=== PATIENT | female | born 1955 | race Caucasian/White ===

== ENCOUNTER 2019-02-23 11:31 | Observation (INO) | payer MEDICARE, SELFPAY ==
[2019-02-22 12:45] VITALS: BMI 38.0
[2019-02-23] VITALS (10 sets, daily range): BP systolic 106–163; BP diastolic 57–95; PULSE 53–79; RESP 16–18; TEMP 36.2–36.7; O2SAT 92–97; BMI 39.2
--- NOTE | 2019-02-23 | GALL_PTH ---
PATIENT: ELISABET ROMANO LOC: [facility]3 U#:[id number] AGE/SX: 64/F ROOM: MS313 RE02/23/[address]: Dr. Jules Campbell MD : 1955 BED: 1 DIS: 02/23/2019 SPEC #: [id number] RECD: 02/23/19 12:16 STATUS: ADÁN JOHN #: [id number] GUZMAN: 02/23/19 00:[address]: Jules Campbell DEPT: SURGICAL PATHOLOGY RECD BY: Alessio Briscoe ENTERED: 02/23/19 12:19 SP TYPE: MOJGAN SPAULDING DR: Dr. Emil Vásquez MD Tissues: A - Gallbladder, NOS B - HERNIA Procedures: Surgery Specimen Level II Surgery Specimen Level III HEADER OPERATION: Laparoscopic cholecystectomy with IOC, umbilical hernia PRE-OP DIAGNOSIS: Cholecystitis with cholelithiasis; umbilical hernia without obstruction or gangrene TISSUE SUBMITTED: A - Gallbladder, B - Hernia sac MICROSCOPIC DIAGNOSIS A. Gallbladder, cholecystectomy: Cholesterolosis, chronic cholecystitis and cholelithiasis. B. Hernia sac, herniorrhaphy: Fragment of benign fibrofatty tissue consistent with hernia sac. AM:ap 02/24/19 MICROSCOPIC DESCRIPTION Slides are reviewed. GROSS DESCRIPTION A - Received is one container labeled with the patient's name and designated gallbladder. The specimen consists of a gallbladder measuring 8 cm in length and 4 cm in diameter. The external surface is pink-peña, smooth and glistening for the most part. Focally it is granular, hemorrhagic and contains cautery artifact. The gallbladder contains green-yellow mucoid bile and multiple mulberry, orange-brown stones measuring in aggregate 2 x 2 x 0.5 cm and <0.1 to 0.5 cm in greatest dimension. The mucosa also shows several yellowish streaks consistent with cholesterolosis. The gallbladder wall measures up to 0.2 cm in thickness. Disaster Director sections from the gallbladder and the cystic duct are submitted in one cassette. B - Received in fixative is one container labeled with the patient's name and designated hernia sac. The specimen consists of an irregular piece of adipose tissue measuring 4.5 x 2 x 1 cm. Sections do not reveal any mass lesion. Disaster Director sections are submitted in one cassette. / SJ:ap 02/23/19 TC:3 CPT: 93588, 60093
--- NOTE | 2019-02-23 08:27 | EKG12_ITS ---
Test Reason : PREOP Blood Pressure : / mmHG Vent. Rate : 071 BPM Atrial Rate : 071 BPM P-R Int : 150 ms QRS Dur : 086 ms QT Int : 410 ms P-R-T Axes : 018 -20 007 degrees QTc Int : 445 ms Normal sinus rhythm Voltage criteria for left ventricular hypertrophy Abnormal ECG Confirmed by ROSA VILLALOBOS, BINH ([id number]), videotape editor SILVER SUÁREZ ([id number]) on 02/25/2019 11:34:26 AM Referred By: Jules Campbell Confirmed By:TISH LEE MD
[2019-02-23] MEDS: Lactated Ringers 1,000 ML 100 ML IV ×3 (08:53→14:20)
[2019-02-23 08:54] LABS: Anion Gap 3 (5-15); BUN 10 mg/dL (7-18); BUN/Creat Ratio 10.2 RATIO (10-20); Calcium,Total 9.3 mg/dL (8.5-10.1); Chloride 106 mmol/L (98-107); Creatinine, Serum 0.98 mg/dL (0.55-1.02); EST Glomerular Filtration Rate 61 mL/min (>60); Est Glom Filt Rate - Afr Amer 73 mL/min (>60); Estimated Creatinine Clearance 46.71 ml/min; Glucose 99 mg/dL (74-106); Potassium 3.8 mmol/L (3.5-5.1); Sodium Level 139 mmol/L (136-145)
--- NOTE | 2019-02-23 09:00 | DCINST_ITS ---
Discharge Diet: Light diet - advance as tolerated - if you have questions about your diet instructions, please talk to you doctor. Discharge Activity: May Not Drive - for 3-5 days or while taking narcotic pain medicine. May shower in (days): 1 Lifting Restrictions: 10 pounds Call your doctor if your incision/area has: Continuous Slow Oozing, Sudden Increased Bleeding, Increased Pain/ Swelling, Increased Redness, Foul Smelling Discharge Call your doctor if you observe: Fever of 101 or Higher Suture Line Care: Avoid Pulling/Pushing, Avoid Pinching/Bending Additional Dressing/Incision Instructions:: Change or remove dressing in 4 days. Leave steri-strips in place for 1 week. Allergies/Adverse Reactions: Allergies No Known Allergies Allergy (Verified 02/23/19 08:35) Medications to take at Discharge Omeprazole [Prilosec] 20 mg PO DAILY PRN PRN 09/05/14 Spironolactone [Aldactone] 25 mg PO DAILY 09/05/14 Perbinafine 250 mg PO DAILY 02/22/19 biotin 1 mg capsule 1 mg PO DAILY 02/22/19 hydrocodone 5 mg-acetaminophen 325 mg tablet 1 tab PO PRN PRN 02/22/19 ondansetron HCl 4 mg tablet 4 mg PO BID-TID PRN 02/22/19 ranitidine 150 mg tablet 150 mg PO BID PRN 02/22/19 Primary Care Physician: Emil Vásquez [Primary Care Provider] - Test Results: Test results from this visit will be discussed in further detail at your follow- up appointment, if applicable. Please Follow Up With: Jules Campbell MD - [phone] When: Call to make an appointment to be seen in about 10 days.
--- NOTE | 2019-02-23 09:01 | HP.PCM_ITS ---
Problem List (1) Cholecystitis with cholelithiasis Status: Acute Qualifiers: Cholelithiasis location: gallbladder Cholecystitis acuity: acute and chronic Biliary obstruction: without biliary obstruction Qualified Code(s): K80.12 - Calculus of gallbladder with acute and chronic cholecystitis without obstruction (2) Umbilical hernia without obstruction or gangrene Status: Acute History and Physical Date of Admission: 02/23/19 MR#:[id number] Name: ELISABET ROMANO Rep #: [id number] : 1955 Provider: Jules Campbell MD Age/Sex: 64/F Location: [facility] Status: Signed Intake Vital Signs 02/22/19 Height 5 ft 3 in 02/22/19 Weight: 210 lb 6 oz 02/22/19 Body Mass Index (BMI) 37.3 02/22/19 Blood Pressure 159/93 H 02/22/19 Blood Pressure Location Rt brachial 02/22/19 Respiratory Rate 20 H 02/22/19 Pulse Rate 76 02/22/19 Pulse Ox 96 Intake Visit Reasons: Gall Bladder Chief Complaint: abn gallbladder US Internal Control Consultant Required: No Is patient in pain?: No Allergies No Known Allergies Allergy (Verified 02/22/19 12:17) Medications Multivitamins,Ther W-Minerals [Multivitamin With Minerals] 1 tab PO DAILY 09/05/14 [History Confirmed 02/22/19] Omeprazole [Prilosec] 20 mg PO DAILY PRN PRN 09/05/14 [History Confirmed 02/22/19] Spironolactone [Aldactone] 25 mg PO DAILY 09/05/14 [History Confirmed 02/22/19] biotin 1 mg capsule 1 mg PO DAILY 02/22/19 [History Confirmed 02/22/19] hydrocodone 5 mg-acetaminophen 325 mg tablet 1 tab PO QHS 02/22/19 [History Confirmed 02/22/19] ondansetron HCl 4 mg tablet 4 mg PO BID-TID PRN 02/22/19 [History Confirmed 02/22/19] ranitidine 150 mg tablet 150 mg PO BID PRN 02/22/19 [History Confirmed 02/22/19] Is last menstrual period known: No Post menopausal: Yes Patient : No [facility] Medical History (Updated 02/22/19 @ 12:43 by Jules Campbell MD) Umbilical hernia without obstruction or gangrene (Acute) Cholecystitis with cholelithiasis (Acute) Anxiety (Acute) GERD (gastroesophageal reflux disease) (Acute) Hemorrhoid (Acute) Osteoarthritis (Acute) Surgical History (Updated 02/22/19 @ 12:14 by Leslie Hare) History of angioplasty of vein (Acute) History of bladder repair surgery (Acute) History of colonoscopy (Acute ~2017) History of inguinal hernia repair (Acute) Family History (Updated 02/22/19 @ 12:15 by Leslie Hare) Sister Hypertension Aunt Colon cancer Grandmother Colon cancer Social History (Updated 02/22/19 @ 12:45 by Jules Campbell MD) Smoking Status: Never smoker HPI HPI HPI: ELISABET ROMANO, is a 64 F who presents to the office today for HPI HPI Surgical H&P: Yes HPI: ELISABET ROMANO, is a 64 F who presents to the office today for surgical consultation regarding severe right upper back pain and nausea. The patient had onset acutely approximately 30 hours ago. She presented to the [place] emergency room on February 21, 2019 at 4:00 in the morning. White blood cell count 7.9 with a hemoglobin 13.8 and hematocrit of 40.2 platelet count of 236,000. BUN is 12 and creatinine 0.9. She had both a CT scan and a gallbladder ultrasound. Both of these were abnormal. The ultrasound findings showed gallbladder wall thickening up to 5.8 mm with trace pericholecystic fluid. Suspect sludge or gravel. The CT scan demonstrated mildly distended gallbladder with thickening of gallbladder wall some slight fluid no evidence of bile duct dilatation. The patient states that her back pain has improved. She still has residual nausea. She denies fever or chills. She has had sweats. On further discussion with her it seems apparent that she has been having ongoing problems for an extended post period of time particularly postprandially but did not recognize that his potential gallbladder disease. She states that a year now half ago after eating a high-fat meal of not shows that she presented to the emergency room with severe epigastric pain at that time. She was not diagnosed as having gallbladder disease at that moment. The patient is referred by her primary care physician Dr. Emil Vásquez and a written compromise surgical consult and recommendations will be returned to him ROS General General: No weight change, appetite, fatigue, colon cancer, breast cancer or weakness HEENT HEENT: No difficulty swallowing, eye injury, eye surgery, swollen glands or hoarseness Endo Endocrine: No thyroid disease, diabetes mellitus, thyroid cancer, Hair loss, heat intolerance or cold intolerance Cardio Cardiovascular: Yes high blood pressure; no murmur, pacemaker, heart disease, atrial fibrillation, heart attack, heart stent, palpitations, shortness of breat with exertion or chest pain Resp Respiratory: No shortness of breath, No sleep apnea, No cough, No COPD, No asthma, No emphysema, No wheezing Gastro Gastrointestinal: No abdominal pain, No nausea or vomiting, No diarrhea, No constipation, No blood in stool, Yes acid reflux, Yes hemorrhoids, No ulcers, Yes gallbladder problem, No black,tarry stools [place] Hematologic: No blood thinners, No blood disorders, No bleeding, No anemia, No blood clots Neuro Neurologic: No weakness Exam Const General: cooperative, healthy appearing, comfortable, no acute distress Nutritional Appearance: obese Orientation: alert, awake HENMT Head: normal to inspection Eyes General: appearance normal, both eyes and all related structures Cardio Rate: regular rate Rhythm: regular rhythm Heart Sounds: no murmurs GI Palpation: soft Auscultation: normal bowel sounds Other: Nontender, no hepatosplenomegaly, no rebound or guarding, small umbilical hernia not reducible Musc Cervical Spine: normal cervical lordosis Neuro General: alert, awake, oriented x3 Extrem General: no calf tenderness bilaterally Psych Affect: normal affect Assessment & Plan Problems 1. Calculus of gallbladder with acute on chronic cholecystitis without obstruction K80.12 2. Umbilical hernia without obstruction or gangrene K42.9 Plan I am recommending the patient a lap scopic cholecystectomy with selective cholangiography. Because of the umbilical hernia anticipate a suture repair of the umbilical hernia at the time of surgery. We have extensively discussed the technique, benefit, risks, alternatives. I am impressed by the CT and ultrasound findings. The patient's clinical examination however does not suggest an acute septic process at this time. I recommend that we schedule her at earliest scheduling convenience. We will try to add her onto the schedule tomorrow. She has had an opportunity to ask and have questions answered. I very much appreciate the opportunity of assisting with her surgical care. CC: Dr. Emil Campbell M.D., F.A.C.S. Coding Level of Care Code 89968 Diagnoses Calculus of gallbladder with acute on chronic cholecystitis without obstruction K80.12 ??Cholelithiasis location: gallbladder ??Cholecystitis acuity: acute and chronic ??Biliary obstruction: without biliary obstruction Umbilical hernia without obstruction or gangrene K42.9 02/22/19 1245 <Electronically signed by Jules dunn MD> Date _ I have re-examined the patient. There are no clinical changes since date of exam.
[2019-02-23] MEDS: Cefazolin 2 GM in 0.9% Normal Saline 100 ML IV (09:44)
--- NOTE | 2019-02-23 10:05 | RAD_ITS ---
STUDY: INTRAOPERATIVE CHOLANGIOGRAM. REASON FOR EXAM: Female, 64 years old. Laparoscopic cholecystectomy. FLUOROSCOPY TIME (if supplied): (0:14) minutes/seconds TECHNIQUE: An intraoperative cholangiogram was performed by the surgeon. Imaging was submitted. COMPARISON: None. FINDINGS: Several small filling defects are seen in the distal portion of the common bile duct suggestive of tiny stones. RAD/Cholangiogram/ O R,Initial IMPRESSION: Findings suggestive of several small stones in the distal portion of the common bile Electronically Signed: Demarcus Hawk, at 11:34 EDT , Service support ,
[2019-02-23] MEDS: Bupivacaine Mpf 0.5% 30 ML VIAL (11:30)
--- NOTE | 2019-02-23 11:36 | OP.PCM_ITS ---
Problem List (1) Cholecystitis with cholelithiasis Status: Acute Qualifiers: Cholelithiasis location: gallbladder Cholecystitis acuity: acute and chronic Biliary obstruction: without biliary obstruction Qualified Code(s): K80.12 - Calculus of gallbladder with acute and chronic cholecystitis without obstruction (2) Umbilical hernia without obstruction or gangrene Status: Acute (3) Choledocholithiasis Status: Acute Report of Operation Date of Procedure: 02/23/19 Pre-Operative Diagnosis: Chronic cholecystitis, cholelithiasis, umbilical hernia Post-Operative Diagnosis: Chronic cholecystitis, cholelithiasis, umbilical hernia, choledocholithiasis Surgery/Procedure Performed:: Laparoscopic cholecystectomy with cholangiography, umbilical herniorrhaphy Description of Surgical Findings:: Timeout and informed consent was obtained. 64-year-old female was taken the operating placement table underwent general anesthesia. The abdomen sterilely prepped draped. Ancef 2 g given intravenous preoperatively. A curvilinear incision was made the inferior portion of the umbilicus sharp and blunt dissection performed electrocautery dissection performed preperitoneal fat was incarcerated within it local hernia this was dissected free and submitted the specimen. Holding sutures of 0 Vicryl placed. Varies numbers was inserted. The abdomen was insufflated with CO2 to a pressure of 10 minutes mercury pressure. Debbie trocar inserted. No evidence of any trocar injuries. The abdomen was superficially inspected no evidence of gross abnormality. There were adhesions of omentum to the infundibular area of the gallbladder. The liver appeared to have significant steatosis with a very yellow and fatty in nature. 5-minute trochars were placed in the epigastric mid abdomen right upper quadrant the gallbladder was distracted blunt dissection was instituted at the infundibulum the greater omentum was dissected free from the infundibular the gallbladder hemo-lock clips were used generously. Then the cystic artery was clearly identified it was clipped twice proximally once distally prior to transecting it. Because of the patient's body habitus the infundibular area the gallbladder was very difficult to hold them dissected free. Eventually I elected to take a dome down approach. Hook cautery was used to incise the gallbladder at the liver. Again the liver noted to be very fatty was somewhat difficult to mobilize. The liver edge was grasped and elevated until I could get enough of the gallbladder free to where I could put a liver retractor and to help elevate the liver. I eventually had to put an additional 5 Falcon port in the right upper quadrant in order to hold the transverse colon inferiorly to better see the infundibular area. Having achieved this now I could dissect the gallbladder free from the liver bed hemostasis obtained with electrocautery and hemoclips were indicated. I dissected free all the way down to the cystic duct. Placed a hemo-lock clip on the cystic duct after milking contents back made an incision in the cystic duct and through a 14-gauge Angiocath pain the cholangiogram. There appeared to be multiple filling defects in the distal comm on bile duct. Because of the difficulty of my approach dissection I elected that it was not a good opportunity for me to attempt a trans-cystic common bile duct expiration. 2 hemo-lock clips were placed on the cystic duct stump prior to transecting it. The right upper quadrant was irrigated and aspirated free of excess fluid. A piece of snow and a piece of fibrillar was placed in the liver bed to assure hemostasis. The gallbladder was placed in the plastic retrieval bag. The gallbladder was exited at the umbilicus. The liver bed area again inspected noted to be nicely hemostatic. Trochars were removed the abdomen was allowed to deflate of the CO2. The umbilical hernia was closed with multiple sutures transversely of simple sutures of 0 Nurolon. Fascia and subcutaneous tissues were anesthetized with 0.5% Marcaine a total of 30 cc were used. Skin edges were approximated interrupted 4 Monocryl subdermal stitches. Steri-Strips Telfa and OpSite dressings applied. Sponge and instrument and needle counts were reported to surgically correct. Blood loss was approximately 20 cc. Specimen gallbladder. Drains none. Blood loss 20 cc. The patient was taken to the recovery area in satisfactory edition no apparent complication. It is anticipated the patient will require postoperative ERCP. It is my understanding that there is no one locally available at this time to perform this. The patient will require transfer to a tertiary institution. Jules Campbell M.D., F.A.C.S. Type of Anesthesia:: General Anesthesiologist: Ros Reaves
[2019-02-23] MEDS: Ondansetron 4 MG/2 ML Vial IV (13:50)
[2019-02-23] MEDS: 0.9% NaCl Peripheral Flush Adult/Peds IV ×2 (13:50→15:49)
[2019-02-23] MEDS: Morphine 2 MG/ML Syringe IV (15:48)
--- NOTE | 2019-02-23 16:49 | DS.PCM_ITS ---
Discharge Date and Diagnosis - Problem List Patient Problems: Active and Suspected Problems (Last Updated 02/22/19 @ 12:14 by Leslie Hare) Choledocholithiasis (Acute) Date of Admission: 02/23/19 - Primary Discharge Diagnosis Active and Suspected Problems (Last Updated 02/22/19 @ 12:14 by Leslie Hare) Choledocholithiasis (Acute) Hospital Course and Treatment Imaging Results: 02/23/19 10:05 Cholangiogram/ O R,Initial [RAD] Routine O.R. Fluoro for C-Arm [RAD] Routine Operations: cholecystecomy, - - Umbilical herniorrhaphy Summary of Care Provided: The patient is a 64 year old F who presented to my office yesterday in referral from [place] emergency room because of nausea and right flank pain. Both CT scan and ultrasound suggested marked thickening of the gallbladder wall with pericholecystic fluid and suggestion of sludge or stones. On clinical examination I detected umbilical hernia I took the patient to the operating room today. I performed a umbilical herniorrhaphy and laparoscopic cholecystectomy. The patient had significant steatosis of the liver. A dome down approach was undertaken. Then per my routine I did a routine cholangiogram. This demonstrated what appeared to be several filling defects in the distal common bile duct. Because of the difficulty in requiring a dome down approach for removal of the gallbladder I did not feel comfortable with what appeared to be multiple stones to proceed with a laparoscopic common bile duct exploration. Hemo-lock clips were placed on the cystic duct stump hemostasis was assured on the way out the umbilical herniorrhaphy was performed and it was anticipated the patient would then be referred for ERCP. It is of note that Dr. Reji Sutherland who assists locally with performing ERCPs is out of town for the next 10 days. The patient had an unremarkable intraoperative course. Blood loss was 20 cc. She is recovering well and will be transferred in stable condition. Jules Campbell M.D., F.A.C.S. Patient Problems: Active and Suspected Problems (Last Updated 02/22/19 @ 12:14 by Leslie Hare) Choledocholithiasis (Acute) - Physical Exam Vital Signs Temp Pulse Resp BP Pulse Ox 98.0 F 69 18 128/64 H 95 02/23/19 15:53 02/23/19 15:53 02/23/19 15:53 02/23/19 15:53 02/23/19 15:53 Oxygen Flow Rate (L/min) 2 Oxygen Delivery Method Room Air Weight: 221 lb 12.56 oz Body Mass Index (BMI) 39.2 Intake and Output for Last 24 Hours 02/21/19 02/22/19 02/23/19 23:59 23:59 23:59 Intake Total 1110 / 1110 Balance 1110 / 1110 Laboratory Tests Past 24 Hrs 02/23/19 08:34 Sodium 139 Potassium 3.8 Chloride 106 Carbon Dioxide 30.0 Anion Gap 3 L BUN 10 Creatinine 0.98 Estim Creat Clear Calc 46.71 Est GFR (MDRD) Af Amer 73 Est GFR (MDRD) Non-Af 61 BUN/Creatinine Ratio 10.2 Glucose 99 Calcium 9.3 Discharge Diet: Light diet - advance as tolerated - if you have questions about your diet instructions, please talk to you doctor. Discharge Activity: May Not Drive - for 3-5 days or while taking narcotic pain medicine. May shower in (days): 1 Call your doctor if your incision/area has: Continuous Slow Oozing, Sudden Increased Bleeding, Increased Pain/ Swelling, Increased Redness, Foul Smelling Discharge Call your doctor if you observe: Fever of 101 or Higher Suture Line Care: Avoid Pulling/Pushing, Avoid Pinching/Bending Additional Dressing/Incision Instructions:: Change or remove dressing in 4 days. Leave steri-strips in place for 1 week. Home Medications: Medications to take at Discharge Omeprazole [Prilosec] 20 mg PO DAILY PRN PRN 09/05/14 Spironolactone [Aldactone] 25 mg PO DAILY 09/05/14 Perbinafine 250 mg PO DAILY 02/22/19 biotin 1 mg capsule 1 mg PO DAILY 02/22/19 ondansetron HCl 4 mg tablet 4 mg PO BID-TID PRN 02/22/19 ranitidine 150 mg tablet 150 mg PO BID PRN 02/22/19 Hydrocodone/Acetaminophen [[place] 5-325 Tablet] 1 tab PO PRN PRN 2 Days #6 tab 02/23/19 Following Prescrptions Were Given to Patient: Hydrocodone/Acetaminophen [[place] 5-325 Tablet] 1 tab PO PRN PRN 2 Days #6 tab PRN Reason: Pain Transmission Status: Received by [id number] Primary Care Physician: Emil Vásquez [Primary Care Provider] - Please Follow Up With: Jules Campbell MD - [phone] When: Call to make an appointment to be seen in about 10 days. Medical Necessity - Tobacco Use Smoking Status: Never smoker Tobacco Use: Non-smoker Meaningful Use Info Meaningful Use Diagnoses (Choose all that apply): None applicable
[2019-02-23] MEDS: Cefazolin 1 GM/50 ML BAG IV (17:34)
[2019-02-23] MEDS: HYDROcodone Bitartrate/Apap 5/325 Tablet PO (17:40)
--- NOTE | 2019-02-23 19:57 | NURSING ---
Dr Campbell's office had been contacting hospitals throughout afternoon in order to obtain transfer for ERCP management. they worked with primary RN Mercedes to provide information to patient and daughters. first choice of hospital was [facility] but reportedly, there was a 30+ person wait time for transfer admission. second choice was [facility]. per [facility] policy, pt needed to be admitted through their ER and an accepting GI physician would take the case. Dr Campbell reportedly spoke with a surgeon who would take the case and the unit received call from the [facility] that pt could be transported to the emergency room. the family was very concerned with this and explained that they did not want their mom to be sent to another emergency room where she would sit and wait for 12 hours just to be sent home. this RN spoke with Dr Campbell in regards to discharge needs, reporting that Dr Campbell did not need to complete transfer summary due to pt not being transferred to inpatient unit. discharge order was entered. this RN asked Dr Campbell if he was ok with pt being transferred by family if they were more comfortable with that, he verbalized that pt could go by private vehicle or by ambulance. pt family adamantly did not want to transport pt by private car, informed that insurance might require cover ambulance ride but that we can still set it up for transportation. this RN called [facility] ER and spoke with charge nurse, ensured copy of face sheet was faxed and provided report. family still very distressed with the thought of the pt having to go through ER and asking if pt could stay here overnight and attempt transfer again tomorrow. they requested nursing equipment records supervisor come to unit. equipment records supervisor Juan to unit and spoke with family. Dr Campbell also to unit and spoke with family and explained again that the patient cannot receive ERCP here at this time and needs to go to another facility, the policy for the accepting facility is to go through the ER, and that he tried to speak with accepting physician for direct transfer to inpatient unit without success. family still expressed frustration that there was no guarantee that the patient would be admitted, but Dr Campbell told them that there would be an accepting Doctor and that Dr Campbell had already spoke with him. pt told family I'm done discussing all of this, let's just go. and patient and family agreed to transfer. ambulance had been previously called and pt was saline locked. copy of discharge note and discharge summary was sent with squad and a copy was also given to the patient. pt transported off the unit via squad and this RN again spoke with charge nurse at [facility] to inform of transfer and family concerns.
== END 2019-02-23 18:40 | disposition short-term general hospital (02) ==
LOC: MS3 13:25 → SDC 13:25
PROVIDERS: Anesthesiology; Admitting Provider Surgery; Family Provider Internal Medicine; PCP Internal Medicine; Referring Provider Surgery; Visit Provider Surgery
PROC: (CPT 47610; principal; 2019-02-23 09:45)
DX: K80.12 Calculus of gallbladder with acute and chronic cholecystitis without obstruction (principal); K42.9 Umbilical hernia without obstruction or gangrene; F41.9 Anxiety disorder, unspecified; K21.9 Gastro-esophageal reflux disease without esophagitis; M19.90 Unspecified osteoarthritis, unspecified site; Z79.899 Other long term (current) drug therapy; Z86.718 Personal history of other venous thrombosis and embolism; I10 Essential (primary) hypertension
CPT/HCPCS: 00790; 47563; 49585; 36415; 74300; 76000; 80048; 88302; 88304; 93005; 96361; 96365; 96375; 99218; J7120; A4216; G0378; G0379; J2405

== ENCOUNTER → 2019-03-07 14:15 | Outpatient (CLI) | payer MEDICARE, SELFPAY ==
[2019-02-23 08:38] VITALS: BMI 39.2
[2019-03-07 14:50] LABS: AST(SGOT) 35 U/L (15-37); Alanine Aminotransfer ALT/SGPT 35 U/L (13-56); Albumin, Serum 3.9 g/dL (3.2-5.0); Alkaline Phosphatase 118 U/L (45-117); Bilirubin, Direct 0.16 mg/dL (0.00-0.30); Protein, Total 7.9 g/dL (6.4-8.2)
== END ==
PROVIDERS: Physician Assistant; Family Provider Internal Medicine; PCP Internal Medicine; Referring Provider Surgery; Visit Provider Surgery
DX: K80.50 Calculus of bile duct without cholangitis or cholecystitis without obstruction (principal); K80.10 Calculus of gallbladder with chronic cholecystitis without obstruction
CPT/HCPCS: 36415; 80076